=== PATIENT | male | born 1970 | race Caucasian/White ===

== ENCOUNTER 2016-12-02 15:23 | Inpatient (IN) | payer OTHER ==
[~2016-12-02] VITALS: Ht 160 cm; Wt 99.7 kg
[2016-12-02 16:13] LABS: BASOPHILS 0.1 % (0-2); EOSINOPHILS 3.5 % (0-7); HEMATOCRIT 45.3 % (42.0-54.0); HEMOGLOBIN 14.7 g/dL (13.5-17.5); IMMATURE GRANULOCYTES 0.7 % (0-5); LYMPHOCYTES 6.3 % (15-50); MCHC 32.5 g/dL (31.0-37.0); MCV 83.1 fL (80.0-100.0); MEAN PLATELET VOLUME 8.7 fL (7.4-10.4); MONOCYTES 9.5 % (2-11); NEUTROPHILS 79.9 % (40-80); PLATELET COUNT 296 10x3/uL (130-400); RBC 5.45 10x6/uL (4.20-6.10); RDW 14.7 % (11.5-14.5); WBC 15.3 10x3/uL (4.8-10.8)
[2016-12-02 16:39] LABS: ALBUMIN 3.7 g/dL (3.4-5.0); ALKALINE PHOSPHATASE 89 U/L (46-116); ALT (SGPT) 27 U/L (10-68); BILIRUBIN - TOTAL 0.39 mg/dL (0.2-1.3); CALC OSMOLALITY 277 mosm/kg (275-300); CALCIUM 9.2 mg/dL (8.5-10.1); CARBON DIOXIDE 27.1 mmol/L (21.0-32.0); CHLORIDE - SERUM 101 mmol/L (98-107); CREATININE - SERUM 1.2 mg/dL (0.6-1.3); GLUCOSE 104 mg/dL (74-106); POTASSIUM - SERUM 3.7 mmol/L (3.5-5.1); PROTEIN - SERUM 8.7 g/dL (6.4-8.2); SODIUM 137 mmol/L (136-145); UREA NITROGEN 24 mg/dL (7-18); eGFR NON AFRICAN AMERICAN 69 mL/min (90-120)
[2016-12-02 16:49] LABS: CKMB 0.7 U/L (0.0-3.6); CREATINE KINASE 168 UL (21-232)
[2016-12-02 16:56] LABS: TROPONIN-I < 0.017 ng/mL (0.000-0.060)
[2016-12-02 18:51] LABS: APPEARANCE CLEAR (CLEAR); COLOR YELLOW (YELLOW)
[2016-12-02 18:52] LABS: BILIRUBIN NEGATIVE (NEGATIVE); GLUCOSE NEGATIVE (NEGATIVE); KETONE NEGATIVE (NEGATIVE); LEUKOCYTE ESTERASE NEGATIVE (NEGATIVE); NITRITE NEGATIVE (NEGATIVE); PROTEIN NEGATIVE (NEGATIVE); SPECIFIC GRAVITY 1.025 (1.005-1.020); UROBILINOGEN NORMAL (NORMAL)
[2016-12-02 18:53] LABS: BACTERIA FEW /hpf (NONE SEEN); RED CELLS - URINE 0-5 /hpf (0-5); WHITE CELLS - URINE OCC /hpf (0-5)
[2016-12-02 19:00] VITALS: BP 122/69
[2016-12-02 19:01] LABS: UDS - AMPHET NEGATIVE QUAL (NEGATIVE); UDS - BARB NEGATIVE QUAL (NEGATIVE); UDS - BENZO NEGATIVE QUAL (NEGATIVE); UDS - COCAINE NEGATIVE QUAL (NEGATIVE); UDS - METH NEGATIVE QUAL (NEGATIVE); UDS - OPIATE NEGATIVE QUAL (NEGATIVE); UDS - PCP NEGATIVE QUAL (NEGATIVE); UDS - THC NEGATIVE QUAL (NEGATIVE)
--- NOTE | 2016-12-02 20:36 | NUR ---
ARRIVED TO FLOOR VIA STRETCHER, ACCOMPANIED BY HOSPITAL STAFF AND FAMILY. ORIENTED TO UNIT, PLACED ON TELEMETRY. CALL LIGHT IN REACH. WILL CONTINUE TO MONITOR. SEE NURSE ASSESSMENT.
[2016-12-02] MEDS ORDERED: FISH OIL 1,0001 CA1 PO (22:01)
[2016-12-02] MEDS ORDERED: COZAAR50 MG PO (22:01)
[2016-12-02] MEDS ORDERED: BAYER CHEWABLE81 MG PO (22:02)
--- NOTE | 2016-12-02 22:20 | NUR ---
DR. WHITNEY PAGED FOR PAIN MEDICATION, AWAITING CALL BACK.
[2016-12-02 23:07] VITALS: BP 122/69; Ht 160 cm; Wt 99.7 kg
[2016-12-03] VITALS: BP 133/71
--- NOTE | 2016-12-03 01:11 | NUR ---
FISHER CRAB AT BEDSIDE TO OBTAIN VITALS, CALL LIGHT IN REACH. WILL CONTINUE WITH PLAN OF CARE.
--- NOTE | 2016-12-03 02:59 | NUR ---
DILAUDID 1MG IVP FOR CHEST PAIN 7:10, WILL CONTINUE TO MONITOR.
[2016-12-03 04:00] VITALS: BP 111/56
--- NOTE | 2016-12-03 07:35 | NUR ---
ASSESSMENT DONE. DENIES NEEDS.
[2016-12-03 08:57] VITALS: BP 134/76
[2016-12-03 12:13] VITALS: BP 124/69
--- NOTE | 2016-12-03 13:12 | NUR ---
Is the patient Alert and Oriented? Yes 0 * How many steps to enter\exit or inside your home? 0 0 * PCP DR. WILKINS 0 * Pharmacy [facility] 0 * Preadmission Environment Home with Family 0 * ADLs Independent 0 * Equipment None 0 * List name and contact numbers for known caregivers / representatives who currently or will assist patient after discharge: SPOUSE: ERIC [phone] 0 * Community resources currently utilized None 0 * Additional services required to return to the preadmission environment? No 0 * Can the patient safely return to the preadmission environment? Yes 0 * Has this patient been hospitalized within the prior 30 days at any hospital? No 0 Grand Total: 0 PATIENT IS AWAKE AND ALERT. HE STATES HE WAS INDEPENDENT IN ALL ADL'S PRIOR TO ADMIT. PATIENT LIVES AT HOME WITH HIS , ERIC. SHE WILL BE AVAILABLE TO DRIVE HIM HOME AT DISCHARGE. PATIENT'S PCP IS DR. SAVAGE WILKINS. HE GETS HIM MEDICATION AT [facility]. PATIENT DENIES HOME HEALTH AND DENIES USE OF ANY DME. PATIENT STATES THERE ARE NO STEPS TO ENTER HIS HOME. NO DISCHARGE NEEDS IDENTIFIED AT THIS TIME.
--- NOTE | 2016-12-03 13:21 | NUR ---
RESTING QUIELTY IN BED WITHOUT ANY DISTRESS. MONITOR SHOWS SR @ 90. WILL CONTINUE TO MONITOR.
[2016-12-03 15:59] VITALS: BP 128/65
--- NOTE | 2016-12-03 16:37 | NUR ---
WITHOUT CHANGES OR DISTRESS NOTED AT THIS TIME. FAMILY AT SIDE.
[2016-12-03 19:00] VITALS: BP 128/71
--- NOTE | 2016-12-03 19:09 | NUR ---
PAIN LEVEL 8, GAVE 1MG DILAUDID
--- NOTE | 2016-12-03 19:20 | NUR ---
RECEIVED REPORT, PT VISITING WITH FRIENDS, SAID DILUDID HELP, BED IS LOW, SRX2, CALL LIGHT IN REACH, WILL CONTINUE PLAN OF CARE
[2016-12-04] VITALS (7 sets, daily range): BP systolic 97–124; BP diastolic 50–65
--- NOTE | 2016-12-04 01:28 | NUR ---
ASSESSMENT COMPLETE, 022L, IV-RAC-SL, CMDIVOSG-96-CE, PT GOING FOR L.AXILARY L.N, BIOPSY, CONSENT SIGHED, PT NPO SINCE MIDNIGHT, AT BEDSIDE, BED IS LOW, SRX2, CALL LIGHT IN REACH, WILL CONTINUE PLAN OF CARE
[2016-12-04 05:10] LABS: BASOPHILS 0.1 % (0-2); EOSINOPHILS 2.4 % (0-7); HEMATOCRIT 38.2 % (42.0-54.0); HEMOGLOBIN 12.7 g/dL (13.5-17.5); IMMATURE GRANULOCYTES 0.6 % (0-5); LYMPHOCYTES 5.4 % (15-50); MCH 27.9 pg (26.0-34.0); MCHC 33.2 g/dL (31.0-37.0); MCV 83.8 fL (80.0-100.0); MEAN PLATELET VOLUME 8.9 fL (7.4-10.4); MONOCYTES 15.4 % (2-11); NEUTROPHILS 76.1 % (40-80); PLATELET COUNT 286 10x3/uL (130-400); RBC 4.56 10x6/uL (4.20-6.10); RDW 14.6 % (11.5-14.5); WBC 14.5 10x3/uL (4.8-10.8)
[2016-12-04 05:30] LABS: ALBUMIN 2.8 g/dL (3.4-5.0); ALKALINE PHOSPHATASE 58 U/L (46-116); ALT (SGPT) 21 U/L (10-68); CALC OSMOLALITY 272 mosm/kg (275-300); CALCIUM 8.9 mg/dL (8.5-10.1); CARBON DIOXIDE 29.1 mmol/L (21.0-32.0); CHLORIDE - SERUM 99 mmol/L (98-107); CREATININE - SERUM 1.1 mg/dL (0.6-1.3); GLUCOSE 108 mg/dL (74-106); PROTEIN - SERUM 7.4 g/dL (6.4-8.2); SODIUM 135 mmol/L (136-145); UREA NITROGEN 17 mg/dL (7-18); eGFR NON AFRICAN AMERICAN 76 mL/min (90-120)
--- NOTE | 2016-12-04 07:05 | NUR ---
ASSESSMENT DONE. DENIES NEEDS.
--- NOTE | 2016-12-04 07:22 | NUR ---
TO OR PER BED
--- NOTE | 2016-12-04 09:30 | NUR ---
RETURN FROM OR PER BED. DRSG TO LT AX. C/D. DENIES NEEDS AT THIS TIME. AT SIDE.
[2016-12-04] MEDS ORDERED: TOPROL XL25 MG PO (09:36)
[2016-12-04] MEDS ORDERED: MEDROL DOSE PACK4 MG PO (09:36)
[2016-12-04] MEDS ORDERED: HYDROCODONE-APA1 TAB PO (09:37)
[2016-12-04] MEDS ORDERED: ATIVAN0.5 MG PO (09:37)
--- NOTE | 2016-12-04 12:53 | EC ---
PATIENT:CHALINO BROWNLEE DATE OF SERVICE: 12/02/16 SEX: M MEDICAL RECORD: [id number] DATE OF : [birth year] LOCATION:D.M2 D.212 AGE OF PATIENT: 46 ADMISSION DATE: 12/02/16 REFERRING PHYSICIAN: INTERPRETING PHYSICIAN: TESSIE GARRETT MD ECHOCARDIOGRAM REPORT ECHO CHARGES 4 ECHO COMPLETE CLINICAL DIAGNOSIS: PERICARDIAL EFFUSION ECHOCARDIOGRAPHIC MEASUREMENTS (adult normal given) AC root (d.<3.7cm) 3.0 LV Septum d (<1.2 cm> 1.1 Valve Excursion 2.0 LV Septum (systole) 1.5 Left Atria (s.<4.0cm> 3.7 LVPW d(<1.2cm) 1.6 RV (d.<2.3cm) 3.6 LVPW (sytole) 1.9 LV diastole(<5.6CM) 5.7 MV E-F(>70mm/sec) LV systole 4.5 LVOT Diameter 2.0 MV exc.(>10mm) 2.1 Est.ejection fraction (50-75%) Pericardial Effusion Y DOPPLER: LVIT A 48.0 E 98.0 LA RVSP 23 LVOT 84 AOP1/2T Asc. Ao 118 RVOT RA PA AV Gradient Peak 5.57 AV Mean 3.37 AV Area 2.3 MV Gradient Peak 5.94 MV Mean 1.97 MV Area COMMENTS: District Manager In Training: Sadaf CHAMBERS Rapid Transit Operator:Edwin Rivera TAPE# PACS DATE OF SERVICE: 12/03/2016 Adequate 2D echo, color flow, spectral Doppler, and M-mode. No LVH. LV internal dimensions are normal. Wall motion normal. EF 55%. Aortic valve tricuspid. No stenosis by Doppler interrogation. The left atrium is normal. Mitral valve shows no prolapse. Trace MR. Right-sided chamber is grossly normal. Trace TR by color flow imaging. Incidental note is made of very small pericardial effusion of no clinical significance. TRANSINT:[id number] Voice Confirmation ID: [id number] DOCUMENT ID: [id number] ECHOCARDIOGRAM REPORT [id number] CHALINO BROWNLEE TESSIE GARRETT MD at 1253 CC: [id number] DICTATION DATE: 12/03/16 1320 DISTRICT MANAGER MAJOR ACCOUNTS SALES: 12/03/16 2345 ADM IN [facility] [address] [id number]
--- NOTE | 2016-12-04 18:03 | NUR ---
WITHOUT CHANGES OR DISTRESS NOTED AT THIS TIME.
--- NOTE | 2016-12-04 19:30 | NUR ---
RECEIVED REPORT, VISITING WITH FRIENDS, DNIES ANY NEEDS, BED IS LOW, SRX2, CALL LIGHT IN REACH, WILL CONTINUE PLAN OF CARE
--- NOTE | 2016-12-04 23:45 | NUR ---
PT RESTING WELL WITHOUT C/O OR DISTRESS NOTED. NO CHANGES NOTED IN ASSESSMENT. CALL LIGHT WITHIN REACH. WILL CONT TO MONITOR.
--- NOTE | 2016-12-05 02:34 | NUR ---
ASSESSMENT COMPLETE, SEE FLOWSHEET, PT SLEEPING, AT BEDSIDE, BED IS LOW, SRX2, CALL LIGHT IN REACH, WILL CONTINUE PLAN OF CARE
[2016-12-05 04:00] VITALS: BP 109/62
--- NOTE | 2016-12-05 07:23 | NUR ---
AM ROUNDING- RECEIVED REPORT FROM RECONSTRUCTIVE DENTIST NURSE EWELINA. PT IS CURRENTLY LAYING IN BED ON BACK WITH EYES OPEN RESTING. IS AT BEDSIDE. ON 02 AT 2L VIA NC (CHECKED O2 SAT WHICH IS 97%, PT HAD STATED THAT RESP WAS JUST IN ROOM AND PTS 02 SAT WAS IN THE 80'S ON EXERTION AND PT STATES HE HAD NOT BEEN WEARING 02). ON MONITOR SHOWING SR, HR 84. IV SEEN TO RIGHT AC THAT IS CURRENTLY SALINE LOCKED. DRESSING SEEN TO LEFT ARMPIT AREA. NO NEED AT CURRENT TIME. WILL CONTINUE TO MONITOR AND CONTINUE WITH PLAN OF CARE.
[2016-12-05] MEDS ORDERED: FUROSEMIDE20 MG PO (09:18)
[2016-12-05 11:46] VITALS: BP 136/48
--- NOTE | 2016-12-05 11:46 | NUR ---
CALLED [facility] AND SPOKE WITH ANSWERING SERVICE REGARDING PTS 02 SAT ON EXERTION ON ROOM AIR REGARDING HOME 02 (DONE PER LIZANDRO RN AND TANNER, TERRITORY ACCOUNT REPRESENTATIVE) TO INFORM DR. WHITNEY OF RESULTS. ANSWERING SERVICE STATES THEY WILL PAGE DR. WHITNEY. WILL AWAIT CALLBACK AND CONTINUE TO MONITOR.
--- NOTE | 2016-12-05 11:52 | NUR ---
RECEIVED CALLBACK FROM DR. WHITNEY. INFORMED DR. WHITNEY OF PTS 02 SAT ON EXERTION (96% ON ROOM AIR) AND THAT PER TANNER, CORRECTIONS OFFICER PT WOULD NOT QUALIFY FOR HOME 02. DR. WHITNEY STATES THAT IS FINE. NO NEW ORDERS.
--- NOTE | 2016-12-05 13:04 | NUR ---
1220- D/C INSTRUCTIONS EXPLAINED TO PT. D/C PAPERWORK SIGNED BY PT AND PLACED IN CHART. IV TO RIGHT AC REMOVED WITH CATH TIP INTACT. COVERED SITE WITH 2X2 GAUZE PADS AND SECURED WITH TAPE. TOLERATED WELL. 1235- PT D/C VIA WHEELCHAIR.
--- NOTE | 2016-12-05 16:14 | NUR ---
LATE ENTRY 1030 PATIENT WAS DISCHARGED TO HOME. HE HAD OXYGEN ORDERED HOWEVER HIS SATS AT REST AND WITH ACTIVITY WERE ABOVE 91-94%. CM ADVISED THE PRIMARY NURSE TO NOTIFY THE ATTENDING PHYSICIAN.
--- NOTE | 2016-12-06 08:52 | DS ---
PATIENT:CHALINO BROWNLEE :68 MEDICAL RECORD: [id number] DISCHARGE SUMMARY ADMISSION DATE: 12/02/16 DISCHARGE DATE: 12/05/16 DATE OF ADMISSION: 12/02/2016. DATE OF DISCHARGE: 12/05/2016. CONDITION ON DISCHARGE: Stable. ADMITTING DIAGNOSES: Mediastinal mass, chest pain. DISCHARGE DIAGNOSES: Mediastinal mass, chest pain, pericardial effusion. PROCEDURES: By Dr. Figueroa, left axillary lymph node biopsy. HOSPITAL COURSE: This patient is a 46-year-old gentleman who had over the past several months had discomfort in his chest. He presented to the Emergency Room complaining of pain in the chest as well as shortness of breath. He had a CT of the chest showing mediastinal mass versus infectious process and adenopathy. PHYSICAL EXAMINATION: VITAL SIGNS: He was afebrile. His O2 sat was 99% on 2 liters. Vital signs were stable. HEENT: Unremarkable. The patient's chest x-ray revealed no acute cardiopulmonary processes. His chest CT scan did reveal mediastinal thickening and mixed attenuation that appeared to represent combination of dense fluid and soft tissue density, small to moderate sized pleural effusion. There was a mediastinal, clavicular and lower cervical lymphadenopathy as well as some prominence of axillary lymph nodes on the left, slight effacement of the left innominate vein was seen. There was soft tissue density or dense fluid anteriorly to the anterior descending, but no clear-cut underlying vascular abnormalities were seen. The findings could be public utilities sales representative of mediastinal mass, lymphadenopathy or could represent infectious process, less likely hematoma formation. On the , the patient had a CT scan, which revealed no lymphadenopathy identified in the abdomen or pelvis. There had been some increase in the pericardial effusion with mass contiguous with the pericardium concerning for malignant pleural effusion. Also, there had been interval development of trace bilateral pleural effusions. Cardiophrenic lymph nodes were noted. Findings were overall concerning for primarily thoracic process such as localized lymphoma versus small cell carcinoma. The patient did have an echocardiogram. The echocardiogram revealed no left ventricular hypertrophy, left ventricle internal dimensions were normal, wall motion normal, ejection fraction 55%. Atrial valve and tricuspid valve were normal. No stenoses were noted. There was a very small pericardial effusion with no clinical significance noted. The patient had been on Solu-Medrol as well as IV pain medication. He was switched to Irwin on the morning of his discharge. The patient had his O2 on. His O2 sat was 96% with 2 liters, but taking off was in the mid 80s at 86. It was felt he would benefit from continued O2. Therefore, the patient was discharged, awaiting pathology report. DISCHARGE MEDICATIONS: He was discharged on Ativan 0.5 p.o. b.i.d., hydrocodone 10/325 one q.4 hours p.r.n. severe pain, metoprolol succinate 25 mg daily, DISCHARGE SUMMARY REPORT [id number] CHALINO BROWNLEE Medrol Dosepak, Lasix 20 mg 1 p.o. every day, aspirin 81 mg once a day, fish oil once a day. His losartan was discontinued. He was to be on 2 liters O2. ACTIVITIES: Ad samreen. FOLLOWUP: He would follow up with Dr. Dupont on Wednesday for followup appointment. TRANSINT:[id number] Voice Confirmation ID: [id number] DOCUMENT ID: [id number] CORNELL WHITNEY MD at 0852 CC: [id number] DICTATION DATE: 12/05/16 0937 GUM SCORING MACHINE OPERATOR: 12/05/16 2345 DIS IN 12/05/16 [facility] [address] [place] [address]
--- NOTE | 2016-12-11 13:12 | OP ---
PATIENT NAME: CHALINO BROWNLEE MEDICAL RECORD: [id number] :68 LOCATION:D.M2 D.2126 ADMISSION DATE:12/02/16 SURGEON: FILEMON CABEZAS MD DATE OF OPERATION: 12/04/2016 PREOPERATIVE DIAGNOSES: 1. Left axillary and mediastinal lymphadenopathy. 2. Mediastinal mass. 3. Hypertension. POSTOPERATIVE DIAGNOSES: 1. Left axillary and mediastinal lymphadenopathy. 2. Mediastinal mass. 3. Hypertension. PROCEDURE: Left axillary excisional lymph node biopsy. SURGEON: Filemon Cabezas MD REPORT OF PROCEDURE: The patient's left axilla was prepped and draped in sterile fashion. A skin incision was made in the left axilla and electrocautery was used to dissect through the subcutaneous tissue. Once we entered the axillary space, there were some enlarged lymph nodes found. I was able to eviscerate one of these lymph nodes through the wound and freed it up from its surrounding attachments. This was sent off for permanent specimen. We inspected and stopped any bleeding, which was present. The subcutaneous tissues were reapproximated with interrupted 3-0 Vicryl and then infused with a total of 10 mL of 0.25% Marcaine with epinephrine. The skin incision was closed with a running subcutaneous 5-0 Monocryl and dressed appropriately. COMPLICATIONS: None. CONDITION: Stable. ANESTHESIA: General endotracheal and local. BLOOD LOSS: Minimal. TRANSINT:[id number] Voice Confirmation ID: [id number] DOCUMENT ID: [id number] FILEMON CABEZAS MD at 1312 CC: [id number] DICTATION DATE: 12/04/16 0834 EXPERIENCED TRUCK DRIVER: 12/04/16 1125 DIS IN 12/05/16 [id number] [place] [address]
--- NOTE | 2016-12-11 13:12 | CN ---
PATIENT NAME:CHALINO BROWNLEE MEDICAL RECORD: [id number] : 68 LOCATION:D. D.2126 ADMIT DATE: 12/02/16 ACCOUNT: [id number] CONSULTING PHYSICIAN: FILEMON CABEZAS MD REFERRING PHYSICIAN: SAVAGE WILKINS DO DATE OF CONSULTATION: 12/03/2016 Surgery Consultation CHIEF COMPLAINT: Chest pain. HISTORY OF PRESENT ILLNESS: Mr. Brownlee is a 46-year-old white male who presented to the hospital with severe chest pain. He said this has been ongoing for a few months, but has gotten acutely worse, said he was originally worked up and thought to have costochondritis. On admission to the hospital, he was noted on CT scan to have a large mass versus fluid collection in the chest along with lymphadenopathy of the mediastinum and extending out on the left subclavicular region to the left axilla. He denies any weight gain or weight loss. He reports having some occasional fevers and chills. He has no family history of cancer, which he is aware of. He is tolerating a diet well and really having no other symptoms. PAST MEDICAL HISTORY: Hypertension. PAST SURGICAL HISTORY: Ureteral scope. MEDICATIONS: Cozaar 50 mg daily, Spencer 3 fish oil 1000 mg daily, and aspirin 81 mg daily. ALLERGIES: PENICILLIN. FAMILY HISTORY: Positive for diabetes and heart disease. SOCIAL HISTORY: He denies any current tobacco or alcohol use. REVIEW OF SYSTEMS: GENERAL: He denies fatigue or weakness. NEUROLOGIC: He denies headaches, seizures, strokes or numbness. CARDIOVASCULAR: He reports chest pain. RESPIRATORY: He denies shortness of breath or difficulty breathing. GASTROINTESTINAL: Denies nausea, vomiting, diarrhea, constipation or abdominal pain. GENITOURINARY: No history of kidney disease. No dialysis. HEMATOLOGY: He denies any upper or lower GI bleeding. He does report some easy bruising. ENDOCRINE: He denies being thirsty, but he does sweat a lot. MUSCULOSKELETAL: No joint pain, stiffness or decreased range of motion. PHYSICAL EXAMINATION: VITAL SIGNS: He is afebrile. Vital signs stable. GENERAL: He is a well-developed male, mildly obese, in no apparent distress. HEENT: Sclerae is nonicteric. HEART: Regular rate and rhythm. LUNGS: Clear with no wheezing. ABDOMEN: Soft, nondistended, nontender. CONSULT REPORT [id number] CHALINO BROWNLEE EXTREMITIES: No clubbing, cyanosis or edema. He does have enlarged lymphadenopathy in the left axilla with some mild tenderness to palpation, but no overlying skin changes. NECK: He has a single enlarged lymph node at the base of the left neck. NEUROLOGICAL: Grossly intact. LABORATORY DATA: White count 15.3, hemoglobin 14.7, platelets 298, sodium 137, potassium 3.7, chloride 101, BUN 21, creatinine 1.2. LFTs within normal limits. Albumin 3.7. ASSESSMENT AND PLAN: This is a 46-year-old with mediastinal mass and mediastinal/left axillary lymphadenopathy. 1. I personally reviewed the images of the CT scan and see some enlarged lymph nodes in the left axillary space. We will take the patient to the operating room tomorrow for excisional biopsy on 1 of the lymph nodes. Postoperatively, the patient should be okay for discharge home as long as his chest pain is controlled. TRANSINT:[id number] Voice Confirmation ID: [id number] DOCUMENT ID: [id number] FILEMON CABEZAS MD at 1312 CC: [id number] DICTATION DATE: 12/04/16 0839 LABORER LABORATORY: 12/04/161909 DIS IN 12/05/16 [facility] [address] [place] [address]
[2017-01-12] MEDS ORDERED: ATIVAN0.5 MG PO (14:34)
[2017-01-12] MEDS ORDERED: MEDROL DOSE PACK4 MG PO (14:35)
== END 2016-12-05 13:08 | disposition home or self-care (01) | DRG 823 ==
LOC: D.ER 15:23 → D.M2 20:34
PROVIDERS: Emergency Medicine; Surgery; ADMIT Family Medicine
PROC: 07B60ZX Excision of Left Axillary Lymphatic, Open Approach, Diagnostic (ICD-10-PCS; principal; 2016-12-04 07:30)
DX: C81.14 Nodular sclerosis Hodgkin lymphoma, lymph nodes of axilla and upper limb (principal); J98.59 Other diseases of mediastinum, not elsewhere classified; I31.3 Pericardial effusion (noninflammatory); R00.0 Tachycardia, unspecified; I10 Essential (primary) hypertension; R07.9 Chest pain, unspecified

== ENCOUNTER 2017-01-14 07:00 | Day surgery (SDC) | payer OTHER ==
[~2017-01-14] VITALS: Ht 160 cm; Wt 90.7 kg
[~2017-01-14 07:00] MED LIST: ATIVAN0.5 MG PO; BAYER CHEWABLE81 MG PO; COZAAR50 MG PO; FISH OIL 1,0001 CA1 PO; FUROSEMIDE20 MG PO; HYDROCODONE-APA1 TAB PO; MEDROL DOSE PACK4 MG PO; TOPROL XL25 MG PO
[2017-01-14 08:08] VITALS: BP 117/77; Ht 160 cm; Wt 90.7 kg
[2017-01-14 09:15] LABS: APTT 25.8 SECONDS (22.8-39.4); INR 0.96 (0.85-1.17); PROTIME 12.6 SECONDS (11.6-15.0)
[2017-01-14 09:17] LABS: CALC OSMOLALITY 280 mosm/kg (275-300); CARBON DIOXIDE 30.4 mmol/L (21.0-32.0); CHLORIDE - SERUM 100 mmol/L (98-107); CREATININE - SERUM 0.8 mg/dL (0.6-1.3); GLUCOSE 90 mg/dL (74-106); POTASSIUM - SERUM 4.8 mmol/L (3.5-5.1); SODIUM 140 mmol/L (136-145); UREA NITROGEN 18 mg/dL (7-18); eGFR NON AFRICAN AMERICAN > 90 mL/min (90-120)
[2017-01-14 10:01] LABS: BASOPHILS 0.2 % (0-2); EOSINOPHILS 0.4 % (0-7); HEMATOCRIT 49.6 % (42.0-54.0); HEMOGLOBIN 16.1 g/dL (13.5-17.5); IMMATURE GRANULOCYTES 6.7 % (0-5); MCH 27.4 pg (26.0-34.0); MCHC 32.5 g/dL (31.0-37.0); MCV 84.5 fL (80.0-100.0); MEAN PLATELET VOLUME 9.1 fL (7.4-10.4); MONOCYTES 9.6 % (2-11); NEUTROPHILS 78.1 % (40-80); PLATELET COUNT 333 10x3/uL (130-400); RBC 5.87 10x6/uL (4.20-6.10); RDW 15.7 % (11.5-14.5); WBC 22.4 10x3/uL (4.8-10.8)
--- NOTE | 2017-01-14 14:29 | NUR ---
PORT WAS NOT ACCESSED TODAY
--- NOTE | 2017-01-14 16:00 | NUR ---
1455 [place] DRINK GIVEN OVER ICE
--- NOTE | 2017-01-14 17:38 | NUR ---
1600--PT VOIDS WITHOUT DIFFICULTY, IV DC'D. ANUP DIAZ 1620--DISCHARGE INSTRUCTIONS GIVEN, PT VERBALIZES UNDERSTANDING. PT OFF UNIT VIA WC. ANUP DIAZ
--- NOTE | 2017-01-15 14:51 | OP ---
PATIENT NAME: CHALINO BROWNLEE MEDICAL RECORD: [id number] :68 LOCATION:D.OPS ADMISSION DATE: SURGEON: MIKE CABEZAS MD DATE OF OPERATION: 01/14/2017 PREOPERATIVE DIAGNOSES: 1. Hodgkin lymphoma. 2. Hypertension. POSTOPERATIVE DIAGNOSES: 1. Hodgkin lymphoma. 2. Hypertension. PROCEDURE: 1. Right subclavian vein port placement. 2. Fluoroscopic interpretation. SURGEON: Mike Cabezas MD REPORT OF PROCEDURE: The patient's right chest was prepped and draped in sterile fashion. A needle was used to cannulate the right subclavian vein. The guidewire was advanced with ease. Fluoro was used to note that the wire was in good position in the venous system. A skin incision was made on the right upper lateral chest and a subcutaneous pouch was made over the pectoral fascia. The catheter was tunneled between this pouch and the wire exit site. The port was then sutured to the pectoral fascia using interrupted 2-0 Prolenes times 2. The catheter was cut with a beveled tip at 20 cm. The dilator trocar device was placed over the wire and the wire and dilator were removed. The catheter tip was advanced through the trocar and the trocar was removed. The catheter tip was noted to be in good position in the superior vena cava. The catheter aspirated nonpulsatile dark blood and flushed easily with heparinized saline. The subcutaneous tissues were reapproximated with interrupted 3-0 Vicryl and the skin was closed with running subcutaneous 5-0 Monocryl. COMPLICATIONS: None. CONDITION: Stable. ANESTHESIA: General endotracheal. BLOOD LOSS: Minimal. TRANSINT:[id number] Voice Confirmation ID: [id number] DOCUMENT ID: [id number] MIKE CABEZAS MD at 1451 CC: SAVAGE WILKINS DO and JET COYLE MD [id number] DICTATION DATE: 01/14/17 1420 OVERNIGHT HOUSEPERSON: 01/14/172 [facility] 01/14/[address] [facility] [address] [place] [address]
== END 2017-01-14 16:20 | disposition home or self-care (01) ==
LOC: D.OPS 07:00 → D.PAN 10:00 → D.OPS 10:45 → D.PAN 10:45 → D.OPS 12:30
PROVIDERS: Anesthesiology
DX: C81.90 Hodgkin lymphoma, unspecified, unspecified site (principal); I10 Essential (primary) hypertension; Z01.812 Encounter for preprocedural laboratory examination

== ENCOUNTER 2017-03-14 20:44 | Emergency (ER) | payer OTHER ==
[2017-01-14 08:08] VITALS: BMI 35.5
[2017-03-14 21:32] LABS: BASOPHILS 0.2 % (0-2); HEMATOCRIT 40.5 % (42.0-54.0); IMMATURE GRANULOCYTES 0.2 % (0-5); LYMPHOCYTES 7.4 % (15-50); MCH 28.2 pg (26.0-34.0); MCHC 34.6 g/dL (31.0-37.0); MCV 81.5 fL (80.0-100.0); MEAN PLATELET VOLUME 9.5 fL (7.4-10.4); MONOCYTES 1.6 % (2-11); NEUTROPHILS 89.6 % (40-80); PLATELET COUNT 137 10x3/uL (130-400); RBC 4.97 10x6/uL (4.20-6.10); RDW 16.7 % (11.5-14.5); WBC 12.7 10x3/uL (4.8-10.8)
[2017-03-14 21:41] LABS: APPEARANCE CLEAR (CLEAR); BILIRUBIN NEGATIVE (NEGATIVE); COLOR YELLOW (YELLOW); GLUCOSE NEGATIVE (NEGATIVE); KETONE NEGATIVE (NEGATIVE); LEUKOCYTE ESTERASE NEGATIVE (NEGATIVE); NITRITE NEGATIVE (NEGATIVE); PROTEIN NEGATIVE (NEGATIVE); SPECIFIC GRAVITY 1.015 (1.005-1.020); UROBILINOGEN NORMAL (NORMAL)
[2017-03-14 21:43] LABS: BACTERIA FEW /hpf (NONE SEEN); EPITHELIAL CELLS 0-5 /hpf (0-5); WHITE CELLS - URINE 0-5 /hpf (0-5)
[2017-03-14 21:47] LABS: ALBUMIN 3.7 g/dL (3.4-5.0); ALKALINE PHOSPHATASE 64 U/L (46-116); ALT (SGPT) 28 U/L (10-68); CALC OSMOLALITY 274 mosm/kg (275-300); CARBON DIOXIDE 27.3 mmol/L (21.0-32.0); CHLORIDE - SERUM 101 mmol/L (98-107); CREATININE - SERUM 0.9 mg/dL (0.6-1.3); GLUCOSE 132 mg/dL (74-106); POTASSIUM - SERUM 3.5 mmol/L (3.5-5.1); SODIUM 136 mmol/L (136-145); UREA NITROGEN 16 mg/dL (7-18); eGFR NON AFRICAN AMERICAN > 90 mL/min (90-120)
== END 2017-03-14 23:11 | disposition home or self-care (01) ==
LOC: D.ER 20:44
PROVIDERS: Family Medicine
DX: R50.9 Fever, unspecified (principal); I10 Essential (primary) hypertension; Z85.72 Personal history of non-Hodgkin lymphomas

== ENCOUNTER 2017-03-17 17:28 | Inpatient (IN) | payer OTHER ==
[2017-03-17 19:16] LABS: BASOPHILS 0.1 % (0-2); EOSINOPHILS 1.1 % (0-7); HEMATOCRIT 35.4 % (42.0-54.0); HEMOGLOBIN 12.2 g/dL (13.5-17.5); IMMATURE GRANULOCYTES 0.4 % (0-5); LYMPHOCYTES 9.3 % (15-50); MCH 28.6 pg (26.0-34.0); MCHC 34.5 g/dL (31.0-37.0); MCV 82.9 fL (80.0-100.0); MEAN PLATELET VOLUME 9.5 fL (7.4-10.4); MONOCYTES 11.3 % (2-11); NEUTROPHILS 77.8 % (40-80); RBC 4.27 10x6/uL (4.20-6.10); RDW 16.4 % (11.5-14.5); WBC 8.3 10x3/uL (4.8-10.8)
[2017-03-17 19:29] LABS: PLATELET COUNT 235 10x3/uL (130-400)
[2017-03-17 19:32] LABS: ALBUMIN 3.3 g/dL (3.4-5.0); ALKALINE PHOSPHATASE 51 U/L (46-116); ALT (SGPT) 25 U/L (10-68); CALC OSMOLALITY 267 mosm/kg (275-300); CALCIUM 9.5 mg/dL (8.5-10.1); CARBON DIOXIDE 28.1 mmol/L (21.0-32.0); CHLORIDE - SERUM 98 mmol/L (98-107); GLUCOSE 122 mg/dL (74-106); POTASSIUM - SERUM 3.5 mmol/L (3.5-5.1); PROTEIN - SERUM 7.5 g/dL (6.4-8.2); SODIUM 133 mmol/L (136-145); UREA NITROGEN 16 mg/dL (7-18); eGFR NON AFRICAN AMERICAN 85 mL/min (90-120)
[2017-03-17 19:42] LABS: CREATINE KINASE 63 UL (21-232); TROPONIN-I < 0.017 ng/mL (0.000-0.060)
[2017-03-18] VITALS: BP 133/76
--- NOTE | 2017-03-18 00:54 | NUR ---
PATIENT ARRIVED FROM THE ER VIA WHEELCHAIR, ALERT AND ORIENTED TO ROOM AND CALL LIGHT.
--- NOTE | 2017-03-18 00:55 | NUR ---
DATA ENTRY CLERK AT BEDSIDE TO OBTAIN VITALS, CALL LIGHT IN REACH. WILL CONTINUE WITH PLAN OF CARE.
[2017-03-18 02:05] LABS: CREATINE KINASE 45 UL (21-232); TROPONIN-I < 0.017 ng/mL (0.000-0.060)
[2017-03-18 04:00] VITALS: BP 109/66
[2017-03-18 07:57] LABS: CREATINE KINASE 46 UL (21-232); TROPONIN-I < 0.017 ng/mL (0.000-0.060)
--- NOTE | 2017-03-18 07:59 | NUR ---
AM ROUNDING- RECIEVED REPORT FROM BRAND DESIGNER NURSE MARLA. PT IS CURRENTLY LAYING IN BED ON BACK WITH EYES OPEN RESTING. AND GUEST ARE AT BEDSIDE. ON ROOM AIR. ON MONITOR SHOWING ST, HR 104. IV SEEN TO LEFT FOREARM WITH NS RUNNING AT 150CC. PT STATES HE IS IN PAIN. INFORMED PT THAT I WILL LOOK TO SEE WHAT HE HAS ORDERED AND TX PER ORDER. WILL CONTINUE TO MONITOR AND CONTINUE WITH PLAN OF CARE.
[2017-03-18 08:00] VITALS: BP 111/63
[2017-03-18 12:00] VITALS: BP 84/54
[2017-03-18 14:17] LABS: CKMB 0.3 U/L (0.0-3.6); CREATINE KINASE 65 UL (21-232)
[2017-03-18 14:24] LABS: TROPONIN-I < 0.017 ng/mL (0.000-0.060)
[2017-03-18 16:00] VITALS: BP 107/56
--- NOTE | 2017-03-18 18:45 | NUR ---
PT IS CURRENTLY SITTING UP IN BED WITH EYES OPEN RESTING. IS AT BEDSIDE. PT DENIES ANY NEED AT THIS CURRENT TIME. DR. COYLE JUST LEFT FLOOR. JOE WOODS AND CELINA, ORE CRUSHING DUST COLLECTOR PAGED DR. ORTIZ FOR CONSULT PER DR. COYLE. DR. ORTIZ IS AWARE. DR. COYLE JUST PLACED NEW ORDERS. WILL CONTINUE TO MONITOR AND CONTINUE WITH PLAN OF CARE.
--- NOTE | 2017-03-18 19:45 | NUR ---
PUT A NEW NS BAG, INFUSING AT 150 TO LEFT FOREARM. PT HAS VISITOR IN ROOM. PT HAS WASHCLOTH ON HEAD FOR HIS FEVER. STATES PAIN 8/10. PT IS AAO AND VERBALIZES CONCERN OF MORPHINE BRINGING HIS BP DOWN. STATES MORPHINE DOES NOT WORK FOR PAIN. WILL WORK ON PAIN MANAGEMENT. PT DENIES ANY NEEDS. NO S/S OF DISTRESS. WILL CPOC
[2017-03-18 20:00] VITALS: BP 108/68
[2017-03-19] VITALS: BP 106/60
[2017-03-19 04:00] VITALS: BP 102/58
[2017-03-19 08:00] VITALS: BP 114/70
--- NOTE | 2017-03-19 08:08 | NUR ---
AM ROUNDING- RECIEVED REPORT FROM AUTOMOTIVE GLAZIER NURSE FREDI. PT IS CURRENTLY LAYING IN BED ON BACK WITH EYES OPEN RESTING. AND GUEST ARE AT BEDSIDE. ON ROOM AIR. ON MONITOR SHOWING ST, HR 114. IV SEEN TO LEFT FOREARM WITH NS RUNNING AT 150CC. JOE RAI IN ROOM NOW. JOE RAI IS GIVING PT NORCO PRN ORDERED FOR PAIN. NO FURTHER NEED AT THIS TIME. PT DOES STATE HE IS SICK TO STOMACH, WILL SEE WHAT PT HAS AND TX ORDERED. WILL CONTINUE TO MONITOR AND CONTINUE WITH PLAN OF CARE.
--- NOTE | 2017-03-19 11:23 | NUR ---
Vancomycin trough was 6.6 on 03-19 at 1026 & dose was given about 2 hrs early last night. Increased frequency to q8h & ordered another trough 10-1 at 1030.
[2017-03-19 11:31] VITALS: BP 108/64
--- NOTE | 2017-03-19 12:29 | NUR ---
CALLED INTO PTS ROOM FOR PT BEING CONCERNED. PT AND PTS IS CONCERNED REGARDING CONSULT FROM DR. CLIFFORD (GENOMICS SCIENTIST FOR DR. PEREZ). PT STATES HE WAS NOT IMPRESSED WITH DR. CLIFFORD AND PT THOUGHT HE CAME OFF RUDE. THIS NURSE WILL CALL DR. COYLE AND LET HIM BE AWARE OF THIS.
--- NOTE | 2017-03-19 12:50 | NUR ---
THIS NURSE CALLED DR. COYLE REGARDING PT CONCERNS. I INFORMED DR. COYLE THAT PT IS NOT SATISFIED WITH DR. CLIFFORD (YARD INSPECTOR FOR DR. PEREZ) AND PT THOUGHT HE WAS NOT INFORMED IN PTS DIAGNOSIS AND WHAT IS GOING ON WITH PT. PT STATES DR. CLIFFORD CAME OFF RUDE TO HIM. DR. COYLE STATES HE DOES NOT KNOW WHAT TO DO AT THIS POINT. DR. COYLE STATES THE ONLY THING HE CAN THINK OF TO DO IS TRANSFER PT OR AWAIT SURGEON (DR. PEREZ) TO RETURN. DR. COYLE STATES TO HAVE MOHIT MAURICIO, INTERIOR DESIGN COORDINATOR CALL HIM WHEN SHE RETURNS TO FLOOR. WILL DO DIRECTED AND CONTINUE TO MONITOR.
--- NOTE | 2017-03-19 13:36 | NUR ---
RECIEVED CALL FROM DR. HERNANDEZ. DR. HERNANDEZ GIVES TELEPHONE ORDERES FOR PREDISONE 40MG TODAY AND THEN 20MG STARTING TOMORROW EVERY DAY. THIS NURSE INFORMED DR. HERNANDEZ REGARDING PTS CONCERNS FOR DR. CLIFFORD. DR. HERNANDEZ STATES IT IS OK AND THAT DR. CLIFFORD WON'T BE DOING ANY SURGERY ON PT ANYWAY, THEY ARE DOING PREDNISONE. WILL PUT ORDERS IN GIVEN. WILL CONTINUE TO MONITOR.
[2017-03-19 16:00] VITALS: BP 125/67
--- NOTE | 2017-03-19 16:47 | EC ---
PATIENT:CHALINO BROWNLEE DATE OF SERVICE: 03/17/17 SEX: M MEDICAL RECORD: [id number] DATE OF : 68 LOCATION:D.M2 D.213 AGE OF PATIENT: 46 ADMISSION DATE: 03/17/17 REFERRING PHYSICIAN: INTERPRETING PHYSICIAN: VIANCA VERDUGO MD ECHOCARDIOGRAM REPORT ECHO CHARGES 4 ECHO COMPLETE CLINICAL DIAGNOSIS: PERICARDIAL EFFUSION,CHEST PAIN ECHOCARDIOGRAPHIC MEASUREMENTS (adult normal given) AC root (d.<3.7cm) 3.4 cm LV Septum d (<1.2 cm> 1.5 cm Valve Excursion 1.4 cm LV Septum (systole) 1.7 cm Left Atria (s.<4.0cm> 26 cm LVPW d(<1.2cm) 16 cm RV (d.<2.3cm) 3.7 cm LVPW (sytole) 1.7 cm LV diastole(<5.6CM) 4.1 cm MV E-F(>70mm/sec) cm LV systole 2.3 cm LVOT Diameter 2.0 cm MV exc.(>10mm) 2.5 cm Est.ejection fraction (50-75%) % Pericardial Effusion Y DOPPLER: LVIT cm/sec A 66.0 cm/sec E 105 cm/sec LA cm/sec RVSP 18 mmHg LVOT 123 cm/sec AOP1/2T m/s Asc. Ao 140 cm/sec RVOT 86 cm/sec RA cm/sec PA 139 cm/sec AV Gradient Peak 7.89 mmHg AV Mean 4.37 mmHg AV Area 2.9 cm MV Gradient Peak 5.05 mmHg MV Mean 2.31 mmHg MV Area cm COMMENTS: Field Marketing Associate: Sadaf CHAMBERS Commissary Worker: 1 Dr. Verdugo TAPE# PACS DATE OF SERVICE: 03/18/2017 FINDINGS: 1. Left ventricular chamber size is within normal limits. Left ventricular systolic function is normal. Overall ejection fraction estimated at 60%. 2. Left atrium, right atrium, and right ventricular chamber sizes are within normal limits. 3. Valvular structures have normal structure and motion. 4. Doppler interrogation reveals only pofep-eb-hili tricuspid regurgitation. No other valvular insufficiency or stenosis. Pulmonary systolic pressure is ECHOCARDIOGRAM REPORT [id number] CHALINO BROWNLEE normal, estimated at 18 mmHg. 5. No evidence of pericardial effusion or left ventricular thrombus. TRANSINT:[id number] Voice Confirmation ID: [id number] DOCUMENT ID: [id number] VIANCA VERDUGO MD at 1647 CC: [id number] DICTATION DATE: 03/19/17912 BIOMECHANICAL ENGINEER: 03/19/17 1236 ADM IN [facility] [address] [place] [address]
[2017-03-19 16:56] LABS: APPEARANCE CLEAR (CLEAR); BILIRUBIN NEGATIVE (NEGATIVE); COLOR YELLOW (YELLOW); GLUCOSE NEGATIVE (NEGATIVE); KETONE NEGATIVE (NEGATIVE); NITRITE NEGATIVE (NEGATIVE); PROTEIN NEGATIVE (NEGATIVE); UROBILINOGEN NORMAL (NORMAL)
--- NOTE | 2017-03-19 18:36 | NUR ---
PT IS CURRENTLY SITTING UP IN BED WITH EYES OPEN RESTING. PTS IS AT BEDSIDE. PT GIVEN NORCO PRN ORDERED FOR PAIN AND ZOFRAN PRN NEEDED FOR NAUSEA (NORCO SOMETIMES CAUSES NAUSEA). PT IS THANKING ME FOR WHAT I HAVE DONE FOR HIM. NO FURTHER NEED AT THIS TIME. WILL CONTINUE TO MONITOR.
--- NOTE | 2017-03-19 19:53 | NUR ---
PT RESTING IN BED. AT BEDSIDE. PT HAS NS INFUSING AT 150 TO LEFT FOREARM IV. PT STATES HIS NAUSEA IS BETTER THAN YESTURDAY. PT STATES HE HAD 3 BMS TODAY. PT DENIES ANY NEEDS. NO S/S OF DISTRESS WILL CPOC
[2017-03-19 20:00] VITALS: BP 124/70
--- NOTE | 2017-03-19 22:33 | NUR ---
PT STATES HIS LEFT ARM IV IS TENDER AND PAINFUL. WILL CHECK TO SEE IF IV IS PATENT. IF NOT I WILL REMOVE AND START NEW ACCESS. WILL CHECK AFTER I FINISH MY MED PASS. PT STATES CHEST FEELS LIKE SOME FLUID IS OFF. STATES PAIN IS STILL THERE BUT NOT PAINFUL. PT DOES NOT WANT PAIN PILL OR ZOFRAN AT THIS TIME. STATES HE WILL CALL ME WHEN HE DOES. PT DENIES ANY NEEDS. NO S/S OF DISTRESS. SANDWINCH IN ROOM TO EAT SNACK PROIR TO TAKING PAIN PILL TO PREVENT NAUSEA. WILL CPOC
[2017-03-20] VITALS: BP 142/79
--- NOTE | 2017-03-20 01:24 | NUR ---
PT LEFT FOREARM IV REMOVED CATH INTACT. AREA TENDER AND FIRM. IV INFLITRATION. SAMMY TRIED ONCE. LEFT UPPER ARM. MARLA TRIED ONCE TO LEFT UPPER ARM. WILL ASK CHARGE NURSE ABOUT PORT ACCESS. PT DENIES ANY NEEDS. NO S/S OF DISTRESS. WILL CPOC
--- NOTE | 2017-03-20 02:15 | NUR ---
PT RIGHT CHEST INFUSAPORT ACCESSED BY СЕРГЕЙ DIAZ. CHARGE NURSE. PORT 1" BUT CAN BE 3/4" NEXT TIME ACCESSED. IV ANTIBIOTICS NOW ABLE TO INFUSE. PT DENIES ANY PAIN OR COMPLICATIONS. ULICESG CDI. PT WILL CALL IF NEEDS ASSIST. NO S/S OF DISTRESS. WILL CPOC
[2017-03-20 04:00] VITALS: BP 112/70
[2017-03-20 05:11] LABS: BASOPHILS 0.3 % (0-2); EOSINOPHILS 0.9 % (0-7); HEMOGLOBIN 10.6 g/dL (13.5-17.5); IMMATURE GRANULOCYTES 0.6 % (0-5); LYMPHOCYTES 17.7 % (15-50); MCHC 33.1 g/dL (31.0-37.0); MCV 84.4 fL (80.0-100.0); MEAN PLATELET VOLUME 8.5 fL (7.4-10.4); MONOCYTES 20.9 % (2-11); NEUTROPHILS 59.6 % (40-80); PLATELET COUNT 277 10x3/uL (130-400); RBC 3.79 10x6/uL (4.20-6.10); RDW 16.5 % (11.5-14.5); WBC 3.2 10x3/uL (4.8-10.8)
[2017-03-20 05:42] LABS: ALBUMIN 2.9 g/dL (3.4-5.0); ALKALINE PHOSPHATASE 55 U/L (46-116); ALT (SGPT) 22 U/L (10-68); CALC OSMOLALITY 276 mosm/kg (275-300); CALCIUM 8.9 mg/dL (8.5-10.1); CARBON DIOXIDE 26.6 mmol/L (21.0-32.0); CHLORIDE - SERUM 103 mmol/L (98-107); GLUCOSE 110 mg/dL (74-106); POTASSIUM - SERUM 3.7 mmol/L (3.5-5.1); PROTEIN - SERUM 6.8 g/dL (6.4-8.2); SODIUM 139 mmol/L (136-145); UREA NITROGEN 7 mg/dL (7-18); eGFR NON AFRICAN AMERICAN 85 mL/min (90-120)
--- NOTE | 2017-03-20 06:21 | NUR ---
PT ASLEEP. LAYING ON LEFT SIDE, RESPIRATIONS EVEN AND UNLABORED. NO S/S OF DISTRESS. BED LOW CALL LIGHT IN REACH
--- NOTE | 2017-03-20 07:45 | NUR ---
AM ROUNDS COMPLETED. SHIFT ASSESSMENT DONE. PT A&O SITTING UP IN BED EATING BREAKFAST. PT STATES HE IS FEELING MUCH BETTER AND DENIES ANY FURTHER CP OR DISCOMFORT. RR NONLABORED ON RA. PT DENIES ANY CURRENT NEEDS AT THIS TIME. CL IN REACH. WILL CPOC.
[2017-03-20 08:45] VITALS: BP 109/68
[2017-03-20 12:40] VITALS: BP 108/72
--- NOTE | 2017-03-20 15:48 | NUR ---
PT UP AMBULATING IN ROOM. PT STILL DENIES ANY CP AND STATES TOLD HIM HE MAY GET TO GO HOME TOMORROW AND PT IS EXCITED ABOUT THAT AND BELIEVES HE IS READY. CL IN REACH NO FURTHER NEEDS. WILL CPOC.
[2017-03-20 16:24] VITALS: BP 117/75
--- NOTE | 2017-03-20 19:25 | NUR ---
RECEIVED REPORT, WILL ASSUME CARE OF PT, PT DENIES ANY NEEDS, BED IS LOW, SRX2, CALL LIGHT IN REACH, WILL CONTINUE PLAN OF CARE
[2017-03-20 20:00] VITALS: BP 115/69
[2017-03-21] VITALS: BP 95/56
--- NOTE | 2017-03-21 03:23 | NUR ---
ASSESSMENT COMPLETE, SEE FLOWSHEET, SLEEPING, NO DISTRESS NOTICED, BED IS LOW, SRX2, CALL LIGHT IN REACH, WILL CONTINUE PLAN OF CARE
--- NOTE | 2017-03-21 05:37 | NUR ---
PT IN GOOD SPIRITS, HOPING TO GO HOME TODAY. CPOC.
--- NOTE | 2017-03-21 07:30 | NUR ---
AM ROUNDS COMPLETED. SHIFT ASSESSMENT COMPLETED. NO CHANGES FROM YESTERDAY. PT IS STABLE AND NO FURTHER CP AND READY FOR D/C TODAY. D/C PTS R.CHEST INFUSAPORT WITHOUT ANY ISSUES, NEEDLE FULLY INTACT. PT GOING TO TAKE A SHOWER AND WAIT ON DISCHARGE ORDERS. CL IN REACH, BED IN LOWEST, SIDE RAILS X2. WILL CPOC.
[2017-03-21 08:00] VITALS: BP 138/75
[2017-03-21] MEDS ORDERED: TOPROL XL25 MG PO (08:48)
[2017-03-21] MEDS ORDERED: HYDROCODONE-APA1 TAB PO (08:48)
[2017-03-21] MEDS ORDERED: ATIVAN0.5 MG PO (08:48)
[2017-03-21] MEDS ORDERED: PREDNISONE20 MG PO (08:49)
--- NOTE | 2017-03-21 11:10 | NUR ---
DISCHARGE TEACHING COMPLETED AND PAPERS SIGNED. PT IS EXCITED TO GO HOME, ON HER WAY FOR TRANSPORTATION. PTS BELONGINGS COLLECTED AND TELEMETRY RETURNED TO [employer]. NO FURTHER NEEDS.
--- NOTE | 2017-03-22 10:54 | EC ---
PATIENT:CHALINO BROWNLEE DATE OF SERVICE: 03/17/17 SEX: M MEDICAL RECORD: [id number] DATE OF : [birth year] LOCATION:D.M2 D.213 AGE OF PATIENT: 46 ADMISSION DATE: 03/17/17 REFERRING PHYSICIAN: INTERPRETING PHYSICIAN: FAIZA RAMEY MD ECHOCARDIOGRAM REPORT ECHO CHARGES 4 ECHO COMPLETE CLINICAL DIAGNOSIS: PERICARDIAL EFFUSION,CHEST PAIN ECHOCARDIOGRAPHIC MEASUREMENTS (adult normal given) AC root (d.<3.7cm) 3.4 cm LV Septum d (<1.2 cm> 1.5 cm Valve Excursion 1.4 cm LV Septum (systole) 1.7 cm Left Atria (s.<4.0cm> 26 cm LVPW d(<1.2cm) 16 cm RV (d.<2.3cm) 3.7 cm LVPW (sytole) 1.7 cm LV diastole(<5.6CM) 4.1 cm MV E-F(>70mm/sec) cm LV systole 2.3 cm LVOT Diameter 2.0 cm MV exc.(>10mm) 2.5 cm Est.ejection fraction (50-75%) % Pericardial Effusion Y DOPPLER: LVIT cm/sec A 66.0 cm/sec E 105 cm/sec LA cm/sec RVSP 18 mmHg LVOT 123 cm/sec AOP1/2T m/s Asc. Ao 140 cm/sec RVOT 86 cm/sec RA cm/sec PA 139 cm/sec AV Gradient Peak 7.89 mmHg AV Mean 4.37 mmHg AV Area 2.9 cm MV Gradient Peak 5.05 mmHg MV Mean 2.31 mmHg MV Area cm COMMENTS: Side Puller: Sadaf CHAMBERS Inventory Control Supervisor: 1 Dr. Verdugo TAPE# PACS DATE OF SERVICE: 03/20/2017 TRANSTHORACIC ECHOCARDIOGRAM FINDINGS: 1. The left ventricle shows evidence of left ventricular hypertrophy with a hyperdynamic left ventricular function. 2. The right ventricle shows mild right ventricular dilatation, right ventricular hypertrophy, also with good hyperdynamic function. 3. The tricuspid valve is shown to be normal structure with mild tricuspid ECHOCARDIOGRAM REPORT [id number] CHALINO BROWNLEE regurgitation. 4. The mitral valve has mild mitral regurgitation. 5. The left atrium appears to be normal size, normal function. 6. The right atrium appears to be normal size, normal function. 7. The pericardium has a mild circumferential pericardial effusion. There is no evidence of tamponade or tamponade physiology. There is no demonstration of intraventricular dependence. IMPRESSION: Normal heart function with mild hypertensive heart disease, mild pericardial effusion without tamponade, normal pulmonary pressures. TRANSINT:[id number] Voice Confirmation ID: [id number] DOCUMENT ID: [id number] FAIZA RAMEY MD at 1054 CC: [id number] DICTATION DATE: 03/20/17 1142 LOOM OVERHAULER: 03/20/17 1419 DIS IN 03/21/17 [id number] [place] [address]
== END 2017-03-21 11:42 | disposition home or self-care (01) | DRG 315 ==
LOC: D.ER 17:28 → D.M2 23:44
PROVIDERS: Family Medicine; ADMIT Legal Medicine
DX: I31.3 Pericardial effusion (noninflammatory) (principal); C81.94 Hodgkin lymphoma, unspecified, lymph nodes of axilla and upper limb; I10 Essential (primary) hypertension; K59.00 Constipation, unspecified; R00.0 Tachycardia, unspecified; Z87.891 Personal history of nicotine dependence

== ENCOUNTER → 2017-05-03 09:03 | Outpatient (CLI) | payer OTHER ==
[~2017-05-03 09:03] MED LIST changes: +ACETAMINOPHEN500 M1 PO; +ELIQUIS5 MG PO; +LEVAQUIN750 MG PO; +PREDNISONE20 MG PO
--- NOTE | 2017-05-07 14:14 | EC ---
PATIENT:CHALINO BROWNLEE DATE OF SERVICE: 05/03/17 SEX: M MEDICAL RECORD: [id number] DATE OF : [birth year] LOCATION:[facility] AGE OF PATIENT: 47 ADMISSION DATE: 05/03/17 REFERRING PHYSICIAN: INTERPRETING PHYSICIAN: VIANCA VERDUGO MD ECHOCARDIOGRAM REPORT ECHO CHARGES 4 ECHO COMPLETE CLINICAL DIAGNOSIS: HTN/PERICARDIAL EFFUSION ECHOCARDIOGRAPHIC MEASUREMENTS (adult normal given) AC root (d.<3.7cm) 3.2 cm LV Septum d (<1.2 cm> 1.2 cm Valve Excursion 1.9 cm LV Septum (systole) 1.7 cm Left Atria (s.<4.0cm> 3.6 cm LVPW d(<1.2cm) 1.4 cm RV (d.<2.3cm) 2.9 cm LVPW (sytole) 1.8 cm LV diastole(<5.6CM) 5.2 cm MV E-F(>70mm/sec) cm LV systole 3.3 cm LVOT Diameter 2.1 cm MV exc.(>10mm) cm Est.ejection fraction (50-75%) % Pericardial Effusion N DOPPLER: LVIT cm/sec A 48.0 cm/sec E 59.0 cm/sec LA cm/sec RVSP 35.0 mmHg LVOT 107 cm/sec AOP1/2T m/s Asc. Ao 115 cm/sec RVOT 53.0 cm/sec RA cm/sec PA 113 cm/sec AV Gradient Peak 5.3 mmHg AV Mean 2.5 mmHg AV Area 3.1 cm MV Gradient Peak 2.6 mmHg MV Mean 1.2 mmHg MV Area cm COMMENTS: Manager Dairy: Timo TAPIAOE Propeller Engineer: 1 Dr. Verdugo TAPE# PACS DATE OF SERVICE: 05/03/2017 PROCEDURE: Echocardiogram FINDINGS: 1. Left ventricular chamber size is within normal limits. Left ventricular systolic function is normal. Overall ejection fraction estimated at 55%-60%. 2. Left atrium, right atrium, and right ventricular chamber sizes are within normal limits. 3. Valvular structures have normal structure and motion. ECHOCARDIOGRAM REPORT [id number] CHALINO BROWNLEE 4. Doppler interrogation reveals mild mitral regurgitation, trace tricuspid regurgitation. No other valvular insufficiency or stenosis. 5. No evidence of pericardial effusion or left ventricular thrombus. Pulmonary artery systolic pressure is normal estimated 35 mmHg. TRANSINT:[id number] Voice Confirmation ID: [id number] DOCUMENT ID: [id number] VIANCA VERDUGO MD at 1414 CC: [id number] DICTATION DATE: 05/03/17 1237 OD GRINDER OPERATOR: 05/03/17 1247 DEP CLI 05/03/17 [facility] [address] [place] [address]
== END | disposition home or self-care (01) ==
LOC: D.ECHO 09:03
DX: I31.3 Pericardial effusion (noninflammatory) (principal)

== ENCOUNTER 2017-06-04 08:30 | Inpatient (IN) | payer OTHER ==
[~2017-06-04] VITALS: Ht 160 cm; Wt 97.7 kg
[~2017-06-04 08:30] MED LIST changes: -ACETAMINOPHEN500 M1 PO; -ELIQUIS5 MG PO; -LEVAQUIN750 MG PO
[2017-06-04 09:18] LABS: BASOPHILS 0.2 % (0-2); EOSINOPHILS 0.2 % (0-7); HEMATOCRIT 44.3 % (42.0-54.0); HEMOGLOBIN 15.1 g/dL (13.5-17.5); IMMATURE GRANULOCYTES 3.6 % (0-5); LYMPHOCYTES 11.4 % (15-50); MCH 30.3 pg (26.0-34.0); MCHC 34.1 g/dL (31.0-37.0); MCV 88.8 fL (80.0-100.0); MEAN PLATELET VOLUME 8.7 fL (7.4-10.4); NEUTROPHILS 58.6 % (40-80); RBC 4.99 10x6/uL (4.20-6.10); RDW 17.5 % (11.5-14.5); WBC 4.2 10x3/uL (4.8-10.8)
[2017-06-04 09:32] LABS: PLATELET COUNT 108 10x3/uL (130-400)
[2017-06-04 09:41] LABS: ALBUMIN 3.6 g/dL (3.4-5.0); ALKALINE PHOSPHATASE 42 U/L (46-116); ALT (SGPT) 25 U/L (10-68); BILIRUBIN - TOTAL 0.37 mg/dL (0.2-1.3); CALC OSMOLALITY 277 mosm/kg (275-300); CALCIUM 8.9 mg/dL (8.5-10.1); CARBON DIOXIDE 25.6 mmol/L (21.0-32.0); CHLORIDE - SERUM 104 mmol/L (98-107); CREATININE - SERUM 1.1 mg/dL (0.6-1.3); GLUCOSE 103 mg/dL (74-106); POTASSIUM - SERUM 3.5 mmol/L (3.5-5.1); PROTEIN - SERUM 6.4 g/dL (6.4-8.2); SODIUM 138 mmol/L (136-145); UREA NITROGEN 18 mg/dL (7-18); eGFR NON AFRICAN AMERICAN 76 mL/min (90-120)
[2017-06-04 10:43] LABS: APPEARANCE HAZY (CLEAR); BACTERIA FEW /hpf (NONE SEEN); BILIRUBIN NEGATIVE (NEGATIVE); COLOR YELLOW (YELLOW); EPITHELIAL CELLS RARE /hpf (0-5); GLUCOSE NEGATIVE (NEGATIVE); KETONE NEGATIVE (NEGATIVE); NITRITE NEGATIVE (NEGATIVE); PROTEIN NEGATIVE (NEGATIVE); RED CELLS - URINE OCC /hpf (0-5); SPECIFIC GRAVITY 1.015 (1.005-1.020); TALC POWDER CRYSTALS RARE /hpf (NONE SEEN); UROBILINOGEN NORMAL (NORMAL); WHITE CELLS - URINE RARE /hpf (0-5)
[2017-06-04] MEDS ORDERED: PREDNISONE20 MG PO (13:33)
[2017-06-04 13:51] VITALS: BP 104/51; BMI 37.0
[2017-06-04 16:08] VITALS: BP 90/50
[2017-06-04 16:23] VITALS: BP 101/60
[2017-06-04 18:00] VITALS: Ht 160 cm; Wt 97.7 kg
--- NOTE | 2017-06-04 18:19 | NUR ---
PATIENT'S FACE IS RED, HIS TEMP IS 99.3. HE STATED HE HAS A HEADACHE AND FEELS LIKE HIS TEMP IS GOING UP. ADMINISTERED TYLENOL.
[2017-06-04 20:00] VITALS: BP 105/53
[2017-06-04 22:41] LABS: CKMB 1.2 U/L (0.0-3.6)
[2017-06-04 22:45] LABS: CREATINE KINASE 1076 UL (21-232); TROPONIN-I < 0.017 ng/mL (0.000-0.060)
[2017-06-04 23:54] VITALS: BP 98/51
[2017-06-05 04:00] VITALS: BP 109/66
[2017-06-05 07:15] LABS: CALC OSMOLALITY 278 mosm/kg (275-300); CALCIUM 8.3 mg/dL (8.5-10.1); CARBON DIOXIDE 25.9 mmol/L (21.0-32.0); CHLORIDE - SERUM 104 mmol/L (98-107); GLUCOSE 95 mg/dL (74-106); POTASSIUM - SERUM 3.6 mmol/L (3.5-5.1); SODIUM 139 mmol/L (136-145); UREA NITROGEN 15 mg/dL (7-18); eGFR NON AFRICAN AMERICAN 85 mL/min (90-120)
[2017-06-05 07:25] LABS: BASOPHILS 0.4 % (0-2); EOSINOPHILS 0.9 % (0-7); HEMATOCRIT 39.5 % (42.0-54.0); HEMOGLOBIN 13.2 g/dL (13.5-17.5); IMMATURE GRANULOCYTES 1.5 % (0-5); LYMPHOCYTES 4.6 % (15-50); MCH 29.9 pg (26.0-34.0); MCHC 33.4 g/dL (31.0-37.0); MCV 89.6 fL (80.0-100.0); MEAN PLATELET VOLUME 9.9 fL (7.4-10.4); MONOCYTES 10.9 % (2-11); NEUTROPHILS 81.7 % (40-80); PLATELET COUNT 66 10x3/uL (130-400); RBC 4.41 10x6/uL (4.20-6.10); RDW 18.4 % (11.5-14.5); WBC 7.8 10x3/uL (4.8-10.8)
[2017-06-05 07:52] LABS: PLATELET ESTIMATE DECREASED
[2017-06-05 08:56] VITALS: BP 107/68
--- NOTE | 2017-06-05 11:07 | NUR ---
PT SPIKED FEVER OF 102.9. 650MG TYLENOL GIVEN.
[2017-06-05 11:54] VITALS: BP 112/60
--- NOTE | 2017-06-05 11:54 | NUR ---
PT TEMP RECHECKED. DOWN TO 99.8. WCTM.
[2017-06-05 15:47] VITALS: BP 124/67
--- NOTE | 2017-06-05 18:39 | NUR ---
PT FACE SWOLLEN AND HAND SWOLLEN AT IV INSERTION AND ITCHING. PT REQ AND REC'D PRN ATARAX. WCTM.
[2017-06-05 20:00] VITALS: BP 103/62
--- NOTE | 2017-06-05 20:30 | NUR ---
PATIENT RESTING IN BED AND DENIES NEEDS AT THIS TIME. BED IN LOWEST POSITION AND CALL LIGHT WITHIN REACH. ENCOURAGED THE PATIENT TO CALL IF HE HAS NEEDS.
[2017-06-06] VITALS: BP 96/52
[2017-06-06 04:00] VITALS: BP 116/64
[2017-06-06 07:44] LABS: BASOPHILS 0.1 % (0-2); EOSINOPHILS 0.5 % (0-7); HEMATOCRIT 43.6 % (42.0-54.0); HEMOGLOBIN 14.5 g/dL (13.5-17.5); IMMATURE GRANULOCYTES 1.4 % (0-5); LYMPHOCYTES 5.5 % (15-50); MCH 29.9 pg (26.0-34.0); MCHC 33.3 g/dL (31.0-37.0); MCV 89.9 fL (80.0-100.0); MEAN PLATELET VOLUME 9.4 fL (7.4-10.4); MONOCYTES 1.1 % (2-11); NEUTROPHILS 91.4 % (40-80); PLATELET COUNT 57 10x3/uL (130-400); RBC 4.85 10x6/uL (4.20-6.10); RDW 17.8 % (11.5-14.5); WBC 7.3 10x3/uL (4.8-10.8)
--- NOTE | 2017-06-06 07:44 | NUR ---
WHILE GETTING RAPPORT DON WILSON NOTIFIED ME PT IS SHAKING UNCONTROLLABLY BUT TEMP IS 97.7 PT DAD CAME TO DESK STATING SAME, CAME TO PT ROOM WITH PRN PAIN MED TOOK TEMP UNDER ARM PT TEMP IS 101.7, FILLED BASIN WITH ICE FOR PT AND WILL GIVE PRN MED FOR FEVER
[2017-06-06 08:35] LABS: ANION GAP 11.9 mmol/L (8-16); BILIRUBIN - TOTAL 0.3 mg/dL (0.2-1.3); CARBON DIOXIDE 29.1 mmol/L (21.0-32.0); PROTEIN - SERUM 6.8 g/dL (6.4-8.2)
[2017-06-06 08:40] LABS: CREATININE - SERUM 1.3 mg/dL (0.6-1.3)
--- NOTE | 2017-06-06 08:45 | NUR ---
RECHECKED PT TEMP, TEMP IS NOW 102.7 AFTER TYLENOL AND COLD RAGS PLACED ON PT FORHEAD AND CHEST, NOTIFIED DR CABEZAS AT DESK
[2017-06-06 08:47] LABS: APPEARANCE CLEAR (CLEAR); BILIRUBIN NEGATIVE (NEGATIVE); COLOR YELLOW (YELLOW); GLUCOSE NEGATIVE (NEGATIVE); KETONE NEGATIVE (NEGATIVE); NITRITE NEGATIVE (NEGATIVE); PH 5.5 (5.0-6.0); PROTEIN TRACE mg/dL (NEGATIVE); SPECIFIC GRAVITY 1.015 (1.005-1.020); UROBILINOGEN NORMAL (NORMAL)
[2017-06-06 08:51] VITALS: BP 128/67
[2017-06-06 09:09] LABS: BACTERIA NONE SEEN /hpf (NONE SEEN); EPITHELIAL CELLS 0-5 /hpf (0-5); WHITE CELLS - URINE 0-5 /hpf (0-5)
--- NOTE | 2017-06-06 11:21 | NUR ---
RECIEVED ORDERS TO HAVE SUPPLIES AT BEDSIDE FOR DR CABEZAS TO REMOVE PORT, HAVE PT SIGN CONSENTS, NO OTHER NEEDS AT THIS TIME, SPOUSE AT BEDSIDE
[2017-06-06 12:45] VITALS: BP 113/71
--- NOTE | 2017-06-06 13:26 | NUR ---
PT HAD REMOVAL OF PORT, TOLERATED WELL, PLACED GAUZE OVER STERI STRIPS DR CABEZAS PLACED ON PT STITCHES, PT STILL HAD SOME BLEEDING COMING THROUGH. BED IN LOW POSITION, CALL LIGHT IN REACH PT EATING LUNCH AND SPOUSE AT BEDSIDE
[2017-06-06 16:16] VITALS: BP 115/61
--- NOTE | 2017-06-06 17:34 | NUR ---
PATIENT IN BED WITH NO COMPLAINTS AT THIS TIME. IV INTACT. FAMILY AT BEDSIDE. CALL LIGHT WITHIN REACH.
[2017-06-06 20:00] VITALS: BP 124/52
--- NOTE | 2017-06-06 20:50 | NUR ---
PATIENT RESTING IN BED WITH NO VISIBLE SIGNS OF DISTRESS. MEDS ADMINISTERED PER ORDERS AND ASSESSMENT COMPLETED. BROUGHT PATIENT A DRINK PER HIS REQUEST. PATIENT DENIES OTHER NEEDS AT THIS TIME. BED IN LOWEST POSITION AND CALL LIGHT WITHIN REACH. ENCOURAGED THE PATIENT TO CALL IF HE HAS NEEDS.
[2017-06-07] VITALS: BP 139/76
[2017-06-07 05:46] LABS: BASOPHILS 0.2 % (0-2); EOSINOPHILS 0.4 % (0-7); HEMATOCRIT 37.2 % (42.0-54.0); HEMOGLOBIN 12.5 g/dL (13.5-17.5); LYMPHOCYTES 6.5 % (15-50); MCH 29.8 pg (26.0-34.0); MCHC 33.6 g/dL (31.0-37.0); MCV 88.8 fL (80.0-100.0); MEAN PLATELET VOLUME 10.1 fL (7.4-10.4); MONOCYTES 5.7 % (2-11); NEUTROPHILS 86.2 % (40-80); RBC 4.19 10x6/uL (4.20-6.10); WBC 8.2 10x3/uL (4.8-10.8)
[2017-06-07 05:58] LABS: PLATELET COUNT 69 10x3/uL (130-400)
[2017-06-07 06:22] LABS: ALBUMIN 2.5 g/dL (3.4-5.0); ALKALINE PHOSPHATASE 67 U/L (46-116); ALT (SGPT) 27 U/L (10-68); CALC OSMOLALITY 272 mosm/kg (275-300); CALCIUM 8.3 mg/dL (8.5-10.1); CARBON DIOXIDE 25.3 mmol/L (21.0-32.0); CHLORIDE - SERUM 102 mmol/L (98-107); CREATININE - SERUM 0.9 mg/dL (0.6-1.3); GLUCOSE 117 mg/dL (74-106); POTASSIUM - SERUM 3.3 mmol/L (3.5-5.1); PROTEIN - SERUM 5.7 g/dL (6.4-8.2); SODIUM 136 mmol/L (136-145); UREA NITROGEN 13 mg/dL (7-18); eGFR NON AFRICAN AMERICAN > 90 mL/min (90-120)
--- NOTE | 2017-06-07 07:32 | NUR ---
PATIENT RESTING IN HIS BED. PATIENT IS AWAKE, ALERT, AND ORIENTED X4. PATIENT IS WAINWRIGHT. PATIENT WATCHING T.V. AND STATES HE IS JUST WAITING ON HIS BREAKFAST. PATIENT DENIES ANY NEEDS AT PRESENT TIME. CALL LIGHT IN PATIENT'S REACH. WILL MONITOR PATIENT.
--- NOTE | 2017-06-07 07:32 | NUR ---
PATIENT IS AWAKE, ALERT, AND ORIENTED X4. PATIENT IS UP IN THE BATHROOM. NO PROBELEMS NOTED. PATIENT DENIES ANY NEEDS AT PRESENT TIME. WILL MONITOR PATIENT.
[2017-06-07 07:46] VITALS: BP 119/73
--- NOTE | 2017-06-07 10:18 | NUR ---
Gentamicin trough is 0.5, ok to continue. Ordered trough for 12-20 at 0930.
--- NOTE | 2017-06-07 11:46 | NUR ---
PATIENT RESTING IN BED AND WATCHING T.V. PATIENT DENIES ANY NEEDS AT PRESENT TIME. CALL LIGHT IN PATIENT'S REACH. WILL CONTINUE TO MONITOR PATIENT.
[2017-06-07 11:59] VITALS: BP 123/79
--- NOTE | 2017-06-07 17:56 | NUR ---
PATIENT VISISTING WITH HIS AT THE BEDSIDE. SCHEDULED LEVAQUIN 750 MG IV STARTED PER PHYSICIAN'S ORDERS. PATIENT DENIES ANY NEEDS AT PRESENT TIME. CALL LIGHT IN PATIENT'S REACH. WILL MONITOR PATIENT.
--- NOTE | 2017-06-07 19:51 | NUR ---
PATIENT RESTING IN BED WITH GUEST AT BEDSIDE AND NO S/S OF DISTRESS. BED IN LOWEST POSITION AND CALL LIGHT WITHIN REACH. ENCOURAGED THE PATIENT TO CALL IF HE HAS NEEDS.
[2017-06-08 02:00] VITALS: BP 122/69
[2017-06-08 05:00] VITALS: BP 112/80
--- NOTE | 2017-06-08 07:35 | NUR ---
PATIENT RESTING IN BED AND WATCHING T.V. PATIENT STATES HE HOPES HE GETS TO GO HOME TODAY. PATIENT DENIES ANY NEEDS AT PRESENT TIME. CALL LIGHT IN PATIENT'S REACH. WILL MONITOR PATIENT.
[2017-06-08 08:34] VITALS: BP 127/77
[2017-06-08 11:57] VITALS: BP 131/81
--- NOTE | 2017-06-08 15:39 | OP ---
PATIENT NAME: CHALINO BROWNLEE MEDICAL RECORD: [id number] :68 LOCATION:D.MS [id number] ADMISSION DATE:06/04/17 SURGEON: FILEMON CABEZAS MD DATE OF OPERATION: 06/06/2017 PREOPERATIVE DIAGNOSES: 1. Bacteremia. 2. Infection of central venous catheter. 3. Hodgkin's lymphoma. POSTOPERATIVE DIAGNOSES: 1. Bacteremia. 2. Infection of central venous catheter. 3. Hodgkin's lymphoma. PROCEDURE: Removal of right subclavian vein port. SURGEON: Filemon Cabezas MD REPORT OF PROCEDURE: The patient's right chest was prepped and draped in sterile fashion. A 10 mL of 1% lidocaine with epinephrine was infused into the surrounding tissues. A skin incision was made overlying the port. At this point, the port was clearly visualized and there was noted to be some inflammatory changes to the tissue surrounding the port. There was old bloody thin fluid present, but no sade pus was visualized. A stitch was placed at the base of the catheter and the catheter was removed. This stitch was tied down tightly to stop any bleeding. The subcutaneous tissues were then cleared out and then reapproximated with interrupted 3-0 Vicryl. The skin was then closed with running subcutaneous 5-0 Monocryl. COMPLICATIONS: None. CONDITION: Stable. ANESTHESIA: Local. BLOOD LOSS: Minimal. Procedure done at the bedside. TRANSINT:[id number] Voice Confirmation ID: [id number] DOCUMENT ID: [id number] FILEMON CABEZAS MD at 1539 CC: [id number] DICTATION DATE: 06/06/17 1304 FX ARTIST: 06/06/17 1339 ADM IN [facility] [address] [place] [address]
[2017-06-08 16:07] VITALS: BP 119/80
[2017-06-08 20:00] VITALS: BP 120/79
--- NOTE | 2017-06-08 22:10 | NUR ---
PATIENT RESTING IN BED WITH NO S/S OF DISTRESS. ADMINISTERED MEDS PER ORDERS AND COMPLETED ASSESSMENT. PATIENT DENIES NEEDS AT THIS TIME. BED IN LOWEST POSITION AND CALL LIGHT WITHIN REACH. ENCOURAGED THE PATIENT TO CALL IF HE HAS NEEDS.
[2017-06-09] VITALS: BP 100/58
[2017-06-09 04:00] VITALS: BP 98/62
[2017-06-09 05:58] LABS: BASOPHILS 0.1 % (0-2); HEMATOCRIT 40.2 % (42.0-54.0); HEMOGLOBIN 13.6 g/dL (13.5-17.5); IMMATURE GRANULOCYTES 3.6 % (0-5); LYMPHOCYTES 14.8 % (15-50); MCH 29.8 pg (26.0-34.0); MCHC 33.8 g/dL (31.0-37.0); MEAN PLATELET VOLUME 9.6 fL (7.4-10.4); MONOCYTES 11.6 % (2-11); NEUTROPHILS 68.9 % (40-80); RBC 4.57 10x6/uL (4.20-6.10); RDW 17.8 % (11.5-14.5); WBC 7.8 10x3/uL (4.8-10.8)
[2017-06-09 05:59] LABS: PLATELET COUNT 102 10x3/uL (130-400)
[2017-06-09 06:11] LABS: ALBUMIN 2.8 g/dL (3.4-5.0); ALKALINE PHOSPHATASE 64 U/L (46-116); BILIRUBIN - TOTAL 0.41 mg/dL (0.2-1.3); CALC OSMOLALITY 274 mosm/kg (275-300); CALCIUM 8.8 mg/dL (8.5-10.1); CARBON DIOXIDE 27.4 mmol/L (21.0-32.0); CHLORIDE - SERUM 102 mmol/L (98-107); CREATININE - SERUM 0.9 mg/dL (0.6-1.3); GLUCOSE 102 mg/dL (74-106); SODIUM 137 mmol/L (136-145); UREA NITROGEN 15 mg/dL (7-18); eGFR NON AFRICAN AMERICAN > 90 mL/min (90-120)
[2017-06-09 06:22] LABS: ALT (SGPT) 39 U/L (10-68); POTASSIUM - SERUM 3.8 mmol/L (3.5-5.1)
--- NOTE | 2017-06-09 08:33 | NUR ---
PATIENT RESTING IN HIS BED. PATIENT IS AWAKE, ALERT, AND ORIENTED X4. NO COMPLAINTS OF PAIN. SCHEDULED MORNING MEDICATIONS GIVEN. PATIENT TOLERATED WELL. ASSESSMENT COMPLETED. SEE FLOWSHEET FOR ANY DETAILS. PATIENT DENIES ANY NEEDS AT PRESENT TIME. CALL LIGHT IN PATIENT'S REACH. WILL MONITOR PATIENT.
[2017-06-09 09:13] VITALS: BP 110/76
[2017-06-09] MEDS ORDERED: LEVAQUIN750 MG PO (10:08)
--- NOTE | 2017-06-09 11:00 | NUR ---
Patient Name: CHALINO BROWNLEE Admission Status: ER Accout number: [id number] Admission Date: 06-04-2017 : 1970 Admission Diagnosis:UNSP INFECTION DUE TO CENTRAL VENOUS CATHETER, INIT ENC Attending: JET COYLE Current LOS: 5 Anticipated DC Date: Planned Disposition: Home Primary Insurance: [facility] Discharge Planning Comments: CM MET WITH PATIENT TO ASSESS DISCHARGE PLANNING NEEDS. PATIENT LIVES HOME WITH HIS INDEPENDENTLY WHERE HE PLANS TO RETURN. THERE ARE NO STEPS OR STAIRS IN HIS HOME. HE DENIES ANY DME OR HH NEEDS. HIS FATHER (SAMANTHA) WILL BE THE ONE TO DRIVE HIM HOME. CM WILL CONTINUE TO FOLLOW AND ASSIST NEEDED. PCP: FRANKY CHAWLA () Content Administrator: Minnie Griffin * Is the patient Alert and Oriented? Yes 0 * How many steps to enter\exit or inside your home? 0 0 * PCP FRANKY 0 * Pharmacy [facility] [place] 0 * Preadmission Environment Home with Family 0 * ADLs Independent 0 * Equipment None 0 * List name and contact numbers for known caregivers / representatives who currently or will assist patient after discharge: CAMMY () SAMANTHA BECKMAN (FATHER) 0 * Community resources currently utilized None 0 * Additional services required to return to the preadmission environment? No 0 * Can the patient safely return to the preadmission environment? Yes 0 * Has this patient been hospitalized within the prior 30 days at any hospital? No 0 Grand Total: 0
--- NOTE | 2017-06-09 12:30 | NUR ---
PATIENT TO BE DISCHARGED HOME. IV DC'D FROM PATIENT'S RIGHT HAND WITH CATHETER TIP STILL INTACT. 2X2 WITH A BANDAID APPLIED.
[2017-06-09 12:33] VITALS: BP 129/76
--- NOTE | 2017-06-09 12:36 | NUR ---
DISCHARGE INSTRUCTIONS VERBALIZED TO PATIENT. PATIENT VERBALIZED UNDERSTANDING AND SIGNED DISCHARGE SHEETS. LEVAQUIN PRESCRIPTION SENT TO [facility].
--- NOTE | 2017-06-09 12:45 | NUR ---
PATIENT DISCHARGED VIA WHEELCHAIR TO PRIVATE VEHICLE. PATIENT'S FATHER HERE TO DRIVE HIM HOME.
--- NOTE | 2017-06-16 15:46 | CN ---
PATIENT NAME:CHALINO BROWNLEE MEDICAL RECORD: [id number] : [birth year] LOCATION:D.MS [id number] ADMIT DATE: 06/04/17 ACCOUNT: [id number] CONSULTING PHYSICIAN: VIANCA HERNANDEZ MD REFERRING PHYSICIAN: JET COYLE MD DATE OF CONSULTATION: 06/05/2017 Cardiology Consult DIAGNOSES: 1. Sinus tachycardia. 2. Infected Infusaport. 3. Hodgkin's lymphoma. HISTORY OF PRESENT ILLNESS: Mr. Brownlee presents with cellulitis and swelling around his Infusaport that is the only reason he had chest pain. This was around the port. There is a question of pericardial effusion. He had an echo in February that showed mild pericardial effusion; however, he had a repeat echo in February that did not show the pericardial effusion and an echo in April that did not show any pericardial effusion. He is having no cardiac symptomatology. PHYSICAL EXAMINATION: GENERAL APPEARANCE: Well-nourished, well-developed, appears stated age. Level of distress, comfortable. PSYCHIATRIC: Mental status, alert, normal affect. Orientation, oriented to time, place and person. EYES: Lids and conjunctiva, noninjected. No discharge, no pallor. ENT: Lips, teeth, gums, normal dentition. Oropharynx, no cyanosis, no pallor. NECK: Carotid arteries, bilateral normal upstroke, no bruits, no thrills. JUGULAR VEINS: No jugular venous pressure or distention. CERVICAL LYMPH NODES: Nontender, nonenlarged. THYROID: Not enlarged. Nontender. No nodules. LUNGS: Respiratory effort, unlabored. CHEST: Normal curvature. No thoracic deformity. No chest wall tenderness. Percussion, resonant. Auscultation, clear. No wheezes, no rales, no rhonchi. CARDIOVASCULAR: Precordial exam, nondisplaced. No heaves or pericardial thrills. Rate and rhythm, regular. Heart sounds, normal S1, normal S2. No S3, no gallop, no rub. Systolic murmur, not heard. Diastolic murmur, not heard. EXTREMITIES: No cyanosis, no edema. Peripheral pulses, full and equal in all extremities, except as noted. No bruits appreciated. ABDOMEN: Soft, nondistended. Normal aorta. No bruit. Nontender. No masses. Liver, nontender, no hepatomegaly. Spleen, nontender, no splenomegaly. MUSCULOSKELETAL: No joint tenderness. No joint swelling. No erythema. NEUROLOGICAL: Normal gait, normal strength, normal tone. SKIN: Warm and dry. OVERALL IMPRESSION: Chest pain is from the Infusaport and the cellulitis, pericardial effusion on an echo from April was totally resolved. At this time, no other cardiac workup or treatment is necessary. TRANSINT:[id number] Voice Confirmation ID: [id number] DOCUMENT ID: [id number] CONSULT REPORT [id number] CHALINO BROWNLEE JEFFREY MD at 1546 CC: [id number] DICTATION DATE: 06/05/17822 TOE FORMER STITCHDOWNS: 06/05/17 0938 DIS IN 06/09/17 [address] [place] [address]
== END 2017-06-09 12:45 | disposition home or self-care (01) | DRG 314 ==
LOC: D.ER 08:30 → D.SDCHOLD 10:24 → D.M2 10:24 → D.ER 10:24 → D.MS 10:24
PROVIDERS: Emergency Medicine; Nurse Practitioner Family; ADMIT Legal Medicine
PROC: 0JPT3WZ Removal of Totally Implantable Vascular Access Device from Trunk Subcutaneous Tissue and Fascia, Percutaneous Approach (ICD-10-PCS; principal; 2017-06-06)
DX: T80.212A Local infection due to central venous catheter, initial encounter (principal); A41.53 Sepsis due to Serratia; C81.90 Hodgkin lymphoma, unspecified, unspecified site; Y83.8 Other surgical procedures as the cause of abnormal reaction of the patient, or of later complication, without mention of misadventure at the time of the procedure; I10 Essential (primary) hypertension; K21.9 Gastro-esophageal reflux disease without esophagitis

== ENCOUNTER 2017-06-13 04:34 | Inpatient (IN) | payer OTHER ==
[~2017-06-13] VITALS: Ht 160 cm; Wt 97.5 kg
[~2017-06-13 04:34] MED LIST changes: +LEVAQUIN750 MG PO
[2017-06-13] MEDS ORDERED: ACETAMINOPHEN500 M1 PO (04:54)
[2017-06-13 05:04] LABS: BASOPHILS 0.3 % (0-2); EOSINOPHILS 0.1 % (0-7); HEMATOCRIT 44.3 % (42.0-54.0); HEMOGLOBIN 14.9 g/dL (13.5-17.5); IMMATURE GRANULOCYTES 4.4 % (0-5); LYMPHOCYTES 6.8 % (15-50); MCH 29.9 pg (26.0-34.0); MCHC 33.6 g/dL (31.0-37.0); MCV 88.8 fL (80.0-100.0); MEAN PLATELET VOLUME 9.5 fL (7.4-10.4); NEUTROPHILS 80.4 % (40-80); RBC 4.99 10x6/uL (4.20-6.10); RDW 17.2 % (11.5-14.5); WBC 15.1 10x3/uL (4.8-10.8)
[2017-06-13 05:09] LABS: PLATELET COUNT 181 10x3/uL (130-400)
[2017-06-13 05:16] LABS: ANION GAP 15.8 mmol/L (8-16); CALCIUM 8.5 mg/dL (8.5-10.1); CARBON DIOXIDE 22.8 mmol/L (21.0-32.0); CREATININE - SERUM 1.3 mg/dL (0.6-1.3); POTASSIUM - SERUM 3.6 mmol/L (3.5-5.1)
[2017-06-13 06:53] VITALS: BP 116/74; BMI 38.1
[2017-06-13 08:37] VITALS: BP 143/80
[2017-06-13 09:46] VITALS: Ht 160 cm; Wt 97.5 kg
[2017-06-13 12:35] VITALS: BP 97/61
[2017-06-13 15:34] VITALS: BP 117/70
[2017-06-13 20:00] VITALS: BP 135/72
[2017-06-14] VITALS: BP 105/65
[2017-06-14 04:00] VITALS: BP 115/70
[2017-06-14 07:13] VITALS: BP 114/67
[2017-06-14 10:37] LABS: BASOPHILS 0.5 % (0-2); EOSINOPHILS 0.6 % (0-7); HEMATOCRIT 39.8 % (42.0-54.0); HEMOGLOBIN 13.4 g/dL (13.5-17.5); IMMATURE GRANULOCYTES 7.3 % (0-5); LYMPHOCYTES 10.5 % (15-50); MCH 30.1 pg (26.0-34.0); MCHC 33.7 g/dL (31.0-37.0); MCV 89.4 fL (80.0-100.0); MEAN PLATELET VOLUME 8.4 fL (7.4-10.4); MONOCYTES 12.8 % (2-11); NEUTROPHILS 68.3 % (40-80); PLATELET COUNT 172 10x3/uL (130-400); RBC 4.45 10x6/uL (4.20-6.10); RDW 16.9 % (11.5-14.5)
[2017-06-14 10:39] LABS: WBC 10.3 10x3/uL (4.8-10.8)
[2017-06-14 11:02] VITALS: BP 115/75
[2017-06-14 11:12] LABS: APPEARANCE CLEAR (CLEAR); BILIRUBIN NEGATIVE (NEGATIVE); COLOR YELLOW (YELLOW); GLUCOSE NEGATIVE (NEGATIVE); KETONE NEGATIVE (NEGATIVE); NITRITE NEGATIVE (NEGATIVE); PROTEIN NEGATIVE (NEGATIVE); SPECIFIC GRAVITY 1.025 (1.005-1.020); UROBILINOGEN NORMAL (NORMAL)
[2017-06-14 11:13] LABS: BACTERIA FEW /hpf (NONE SEEN); EPITHELIAL CELLS RARE /hpf (0-5); MUCUS <1+ /lpf (NONE SEEN); RED CELLS - URINE OCC /hpf (0-5); WHITE CELLS - URINE RARE /hpf (0-5)
[2017-06-14 15:04] VITALS: BP 123/62
[2017-06-14 19:30] VITALS: BP 116/63
[2017-06-15 03:58] VITALS: BP 114/60
[2017-06-15 09:32] VITALS: BP 122/73
[2017-06-15] MEDS ORDERED: ELIQUIS5 MG PO ×2 (11:24→11:25)
== END 2017-06-15 12:29 | disposition home or self-care (01) | DRG 300 ==
LOC: D.MS 04:34
PROVIDERS: ADMIT Legal Medicine
DX: I82.621 Acute embolism and thrombosis of deep veins of right upper extremity (principal); L02.11 Cutaneous abscess of neck; R50.9 Fever, unspecified; R00.0 Tachycardia, unspecified

== ENCOUNTER → 2017-08-19 15:36 | Outpatient (CLI) | payer BC ==
[2017-06-13 09:46] VITALS: BMI 38.0
[~2017-08-19 15:36] MED LIST changes: +ACETAMINOPHEN500 M1 PO; +ELIQUIS5 MG PO
== END | disposition home or self-care (01) ==
LOC: D.US 15:36
DX: I82.721 Chronic embolism and thrombosis of deep veins of right upper extremity (principal)

== ENCOUNTER 2017-09-19 07:18 | Emergency (ER) | payer BC ==
[2017-06-13 09:46] VITALS: BMI 38.0
== END 2017-09-19 08:22 | disposition home or self-care (01) ==
LOC: D.ER 07:18
DX: L25.9 Unspecified contact dermatitis, unspecified cause (principal); Z85.71 Personal history of Hodgkin lymphoma; I10 Essential (primary) hypertension

== ENCOUNTER → 2017-11-01 08:38 | Outpatient (CLI) | payer BC ==
[2017-06-13 09:46] VITALS: BMI 38.0
--- NOTE | ~2017-11-01 | EC ---
PATIENT:CHALINO BROWNLEE DATE OF SERVICE: 11/01/17 SEX: M MEDICAL RECORD: [id number] DATE OF : [birth year] [facility] AGE OF PATIENT: 47 ADMISSION DATE: 11/01/17 REFERRING PHYSICIAN: INTERPRETING PHYSICIAN: VIANCA VERDUGO MD ECHOCARDIOGRAM REPORT ECHO CHARGES 4 ECHO COMPLETE Date: 11/01 CLINICAL DIAGNOSIS: PERICARDIAL EFFUSION ECHOCARDIOGRAPHIC MEASUREMENTS (adult normal given) AC root (d.<3.7cm) 3.2 cm LV Septum d (<1.2 cm> 1.1 cm Valve Excursion 1.8 cm LV Septum (systole) 1.6 cm Left Atria (s.<4.0cm> 3.8 cm LVPW d(<1.2cm) 1.2 cm RV (d.<2.3cm) 2.9 cm LVPW (sytole) 1.9 cm LV diastole(<5.6CM) 5.0 cm MV E-F(>70mm/sec) cm LV systole 3.1 cm LVOT Diameter 2.0 cm MV exc.(>10mm) cm Est.ejection fraction (50-75%) % DOPPLER: LVIT cm/sec A 42.0 cm/sec E 76.0 cm/sec LA cm/sec RVSP 34.2 mmHg LVOT 88.0 cm/sec AOP1/2T m/s Asc. Ao 113 cm/sec RVOT 56.0 cm/sec RA cm/sec PA 106 cm/sec AV Gradient Peak 5.1 mmHg AV Mean 2.6 mmHg AV Area 2.1 cm MV Gradient Peak 3.4 mmHg MV Mean 1.3 mmHg MV Area cm COMMENTS: Postal Delivery Officer: Timo TAPIAOE Lead Investigator: 1 Dr. Verdugo TAPE# PACS Pericardial Effusion N DATE OF SERVICE: 11/01/2017 FINDINGS: 1. Left ventricular chamber size is within normal limits. Left ventricular systolic function is normal. Overall ejection fraction is estimated at 60%. 2. Left atrium, right atrium, and right ventricle chamber sizes are within normal limit. 3. Valvular structures have normal structure and motion. 4. Doppler interrogation reveals trace mitral regurgitation, trace tricuspid regurgitation. No other valvular insufficiency or stenosis. Pulmonary systolic ECHOCARDIOGRAM REPORT [id number] CHALINO BROWNLEE pressure is estimated at 34 mmHg. 5. No evidence of pericardial effusion or left ventricular thrombus. TRANSINT:[id number] Voice Confirmation ID: [id number] DOCUMENT ID: [id number] VIANCA VERDUGO MD at 1849 CC: [id number] DICTATION DATE: 11/01/17 1633 BEAUTY DIRECTOR: 11/01/17 1835 DEP CLI 11/01/17 [facility] [id number]
== END | disposition home or self-care (01) ==
LOC: D.ECHO 08:38
DX: I31.3 Pericardial effusion (noninflammatory) (principal)

== ENCOUNTER → 2017-12-03 06:32 | Outpatient (CLI) | payer BC ==
[2017-06-13 09:46] VITALS: BMI 38.0
== END | disposition home or self-care (01) ==
LOC: D.MRI 06:32
DX: M54.5 Low back pain (principal)